=== PATIENT | female | born 1995 | race African-American/Black ===

== ENCOUNTER 2017-07-28 14:27 | Inpatient (IN) | payer BC, OTHER ==
[2017-07-28 15:15] VITALS: BMI 37.3
--- NOTE | 2017-07-28 18:43 | HP ---
CIWA Score - CIWA Score Nausea/Vomitin-Mild Nausea/No Vomiting Muscle Tremors: 3 Anxiety: 3 Agitation: 3 Paroxysmal Sweats: 3 Orientation: 0-Oriented Tacttile Disturbances: 0-None Auditory Disturbances: 0-None Visual Disturbances: 0-None Headache: 1-Very Mild CIWA-Ar Total Score: 14 Admission ROS BHS - HPI Chief Complaint: "I just want to get clean, I just want to do this" Allergies/Adverse Reactions: Allergies Allergy/AdvReac Type Severity Reaction Status Date / Time No Known Allergies Allergy Verified 07/28/17 17:40 History of Present Illness: 21 y/o female with an 8 year old hx of alcohol addiction presents here today requesting detox. This is pt's first time of seeking help with drinking. Denies medical nor psychiatric hx. Denies being mandated by law/the courts, states she came on her own Endorses to feeling sad but denies previous nor current SI/HI Exam Limitations: No Limitations - Ebola screening Have you traveled outside of the country in the last 21 days: No (N) Have you had contact with anyone from an Ebola affected area: No Have you been sick,other than usual withdrawal symptoms: No Do you have a fever: No - Review of Systems Constitutional: Other (unintentional weight gain) EENT: reports: Other (wears glasses) Respiratory: reports: No Symptoms reported Cardiac: reports: Palpitations (sometimes, not current) GI: reports: No Symptoms Reported : reports: No Symptoms Reported Musculoskeletal: reports: Other (generalized pain s/p alteraction yesterday) Integumentary: reports: Bruising (echymosis under R eye) Neuro: reports: No Symptoms reported Endocrine: reports: Excessive Sweating, Change in Weight (frequent weight loss and gain) Hematology: reports: Easy Bruising Psychiatric: reports: Orientated x3 Other Systems: Reviewed and Negative Patient History - Patient Medical History Hx Anemia: No Hx Asthma: No Hx Chronic Obstructive Pulmonary Disease (COPD): No Hx Cancer: No Hx Cardiac Disorders: No Hx Congestive Heart Failure: No Hx Hypertension: No Hx Hypercholesterolemia: No Hx Pacemaker: No HX Cerebrovascular Accident: No Hx Seizures: No Hx Dementia: No Hx Diabetes: No Hx Gastrointestinal Disorders: No Hx Liver Disease: No Hx Genitourinary Disorders: No Hx Sexually Transmitted Disorders: Yes (Chlamydia x 2014) Hx Renal Disease (ESRD): No Hx Thyroid Disease: No Hx Human Immunodeficiency Virus (HIV): No Hx Hepatitis C: No Hx Depression: No Hx Suicide Attempt: No Hx Bipolar Disorder: No Hx Schizophrenia: No - Patient Surgical History Past Surgical History: No Hx Neurologic Surgery: No Hx Cataract Extraction: No Hx Cardiac Surgery: No Hx Lung Surgery: No Hx Breast Surgery: No Hx Breast Biopsy: No Hx Abdominal Surgery: No Hx Appendectomy: No Hx Cholecystectomy: No Hx Genitourinary Surgery: No Hx Section: No Hx Orthopedic Surgery: No Hx Hysterectomy: No Anesthesia Reaction: No - PPD History Previous Implant?: Yes Documented Results: Negative w/o proof Implanted On Prior R Admission?: No PPD to be Administered?: Yes - Reproductive History Patient is a Female of Child Bearing Age (11 -55 yrs old): Yes Last Menstrual Period: 07/25/17 Patient : No - Smoking Cessation Smoking history: Current every day smoker Have you smoked in the past 12 months: Yes Aproximately how many cigarettes per day: 4 Initiated information on smoking cessation: Yes 'Breaking Loose' booklet given: 07/28/17 - Substances Abused Alcohol Route: Oral Frequency: Daily Amount used: 1 LITER of Liquor Age of first use: 14 Date of Last Use: 07/28/17 Family Disease History - Family Disease History Family History: Unremarkable Admission Physical Exam [facility] - Vital Signs Vital Signs: Vital Signs - 24 hr 07/28/17 15:12 Temperature 98.2 F Pulse Rate 110 H Respiratory 18 Rate Blood Pressure 133/68 - Physical General Appearance: Yes: Mild Distress, Anxious HEENTM: Yes: Within Normal Limits Respiratory: Yes: Lungs Clear, Normal Breath Sounds Neck: Yes: No masses,lesions,Nodules Breast: Yes: Breast Exam Deferred Cardiology: Yes: Tachycardia Abdominal: Yes: Non Tender Genitourinary: Yes: Within Normal Limits Back: Yes: Within Normal Limits Musculoskeletal: Yes: Within Normal Limits Extremities: Yes: Within Normal Limits Neurological: Yes: Within Normal Limits Integumentary: Yes: Within Normal Limits Lymphatic: Yes: Within Normal Limits - Diagnostic (1) Alcohol dependence with intoxication, uncomplicated Current Visit: Yes Status: Acute (2) Nicotine dependence Current Visit: Yes Status: Chronic (3) Depressed mood Current Visit: Yes Status: Chronic Cleared for Admission S - Detox or Rehab [facility] Level of Care: Medically Managed Detox Regimen/Protocol: Librium [facility] Breath Alcohol Content Breath Alcohol Content: 0.156 Urine Pregancy Test - Result Urine Test Results: Negative- NO Line Present Urine Drug Screen - Results Drug Screen Negative: Yes
[2017-07-28] MEDS ORDERED: LOPERAMIDE HCL 2 MG CAPSULE PO PRN (19:10)
[2017-07-28] MEDS ORDERED: MAGNESIUM CITRATE 300 ML BOTTLE PO PRN (19:10)
[2017-07-28] MEDS ORDERED: chlordiazePOXIDE HCL 25 MG CAPSULE PO PRN (19:10)
[2017-07-28] MEDS ORDERED: hydrOXYzine PAMOATE 50 MG CAPSULE (FP) PO PRN (19:10)
[2017-07-28] MEDS ORDERED: guaiFENesin/D-METHORPHAN HB 10 ML UNIT-DOSE CUPS PO PRN (19:10)
[2017-07-28] MEDS ORDERED: MAGNESIUM HYDROX 2400MG/30ML ORAL SUSPENSION 30 ML CUP PO PRN (19:10)
[2017-07-28] MEDS ORDERED: MENTHOL/PHENOL 1 EACH UD MM PRN (19:10)
[2017-07-28] MEDS ORDERED: P-EPHED 60MG/TRIPROLIDI 2.5MG TABLET PO PRN (19:10)
[2017-07-28] MEDS ORDERED: IBUPROFEN 400 MG TABLET (FP) PO PRN (19:10)
[2017-07-28] MEDS ORDERED: MAG HYDROX/AL HYDROX/SIMETH 30 ML UNIT-DOSE CUP PO PRN (19:10)
[2017-07-28] MEDS ORDERED: NICOTINE POLACRILEX 2 MG GUM BUC PRN (19:10)
[2017-07-28] MEDS ORDERED: ACETAMINOPHEN 325 MG TABLET (FP) PO PRN (19:17)
[2017-07-28] MEDS ORDERED: MELATONIN 5 MG TABLETS PO PRN (22:00)
[2017-07-28] MEDS ORDERED: THIAMINE HCL 100 MG TABLET (FP) PO SCH (22:00)
[2017-07-28] MEDS: chlordiazePOXIDE HCL 25 MG CAPSULE PO SCH (22:31)
[2017-07-29] MEDS: chlordiazePOXIDE HCL 25 MG CAPSULE PO SCH ×2 (05:44→10:44)
[2017-07-29 06:29] VITALS: TEMP 97.7
--- NOTE | 2017-07-29 08:23 | EKG ---
Test Reason : Blood Pressure : / mmHG Vent. Rate : 102 BPM Atrial Rate : 102 BPM P-R Int : 160 ms QRS Dur : 088 ms QT Int : 334 ms P-R-T Axes : 041 082 044 degrees QTc Int : 435 ms SINUS TACHYCARDIA OTHERWISE NORMAL ECG NO PREVIOUS ECGS AVAILABLE Confirmed by SCOTT FARIAS, ADAMS ([id number]) on 07/29/2017 8:23:43 AM Referred By: Confirmed By:ADAMS CHAVEZ MD
[2017-07-29] MEDS ORDERED: PRENATAL VITAMINS W/ FOLIC ACID TABLET (FP) PO SCH (10:00)
[2017-07-29 10:25] LABS: HEMATOCRIT 35.9 % (32.4-45.2); MCH 30.7 pg (25.7-33.7); MCHC 33.4 g/dl (32.0-36.0); MEAN CELL VOLUME 91.9 fl (80-96); MEAN PLT VOLUME 9.1 fl (7.5-11.1); PLATELET COUNT 238 K/MM3 (134-434); RDW 13.2 % (11.6-15.6); WHITE BLOOD COUNT 4.9 K/mm3 (4.0-10.0)
[2017-07-29 10:37] LABS: ANION GAP 7 (8-16); BLOOD UREA NITROGEN 9 mg/dL (7-18); CALCIUM 8.4 mg/dL (8.5-10.1); CHLORIDE 104 mmol/L (98-107); CO2 29 mmol/L (21-32); GLUCOSE,RANDOM 84 mg/dL (74-106); POTASSIUM 3.7 mmol/L (3.5-5.1); SGOT/AST 34 U/L (15-37); SGPT/ALT 51 U/L (12-78); SODIUM 140 mmol/L (136-145)
[2017-07-29 10:40] LABS: ALK PHOS 59 U/L (45-117); BILIRUBIN,TOTAL 0.5 mg/dL (0.2-1.0); CREATININE 0.8 mg/dL (0.55-1.02); TOT PROT 6.1 g/dl (6.4-8.2)
[2017-07-29 11:48] VITALS: BP 116/68; PULSE 18
--- NOTE | 2017-07-29 12:58 | DS ---
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 PATIENT IS LOOKING FORWARD TO RETURN TO WORK ON SUNDAY DENIES ALCOHOL WITHDRAWAL SX - Physical Exam Results Vital Signs: Vital Signs Temperature 97.7 F 07/29/17 09:54 Pulse Rate 18 L 07/29/17 11:47 Respiratory Rate 86 H 07/29/17 09:54 Blood Pressure 116/68 07/29/17 11:47 O2 Sat by Pulse Oximetry (%) Pertinent Admission Physical Exam Findings: ALCOHOL WITHDRAWAL SX Vital Signs Temperature 97.7 F 07/29/17 09:54 Pulse Rate 18 L 07/29/17 11:47 Respiratory Rate 86 H 07/29/17 09:54 Blood Pressure 116/68 07/29/17 11:47 O2 Sat by Pulse Oximetry (%) Laboratory Last Values WBC 4.9 K/mm3 (4.0-10.0) 07/29/17 07:00 RBC 3.90 M/mm3 (3.60-5.2) 07/29/17 07:00 Hgb 12.0 GM/dL (10.7-15.3) 07/29/17 07:00 Hct 35.9 % (32.4-45.2) 07/29/17 07:00 MCV 91.9 fl (80-96) 07/29/17 07:00 MCH 30.7 pg (25.7-33.7) 07/29/17 07:00 MCHC 33.4 g/dl (32.0-36.0) 07/29/17 07:00 RDW 13.2 % (11.6-15.6) 07/29/17 07:00 Plt Count 238 K/MM3 (134-434) 07/29/17 07:00 MPV 9.1 fl (7.5-11.1) 07/29/17 07:00 Sodium 140 mmol/L (136-145) 07/29/17 07:00 Potassium 3.7 mmol/L (3.5-5.1) 07/29/17 07:00 Chloride 104 mmol/L (98-107) 07/29/17 07:00 Carbon Dioxide 29 mmol/L (21-32) 07/29/17 07:00 Anion Gap 7 (8-16) L 07/29/17 07:00 BUN 9 mg/dL (7-18) 07/29/17 07:00 Creatinine 0.8 mg/dL (0.55-1.02) 07/29/17 07:00 Creat Clearance w eGFR > 60 (>60) 07/29/17 07:00 Random Glucose 84 mg/dL (74-106) 07/29/17 07:00 Calcium 8.4 mg/dL (8.5-10.1) L 07/29/17 07:00 Total Bilirubin 0.5 mg/dL (0.2-1.0) 07/29/17 07:00 AST 34 U/L (15-37) 07/29/17 07:00 ALT 51 U/L (12-78) 07/29/17 07:00 Alkaline Phosphatase 59 U/L (45-117) 07/29/17 07:00 Total Protein 6.1 g/dl (6.4-8.2) L 07/29/17 07:00 Albumin 3.0 g/dl (3.4-5.0) L 07/29/17 07:00 RPR Titer Nonreactive (NONREACTIVE) 07/29/17 07:00 LAB NOTED - Treatment Hospital Course: Detox Protocol Followed, Responded well Patient has Accepted a Rehab [facility]: [facility] - Medication Discharge Medications: Ambulatory Orders NK [No Known Home Medication] 07/28/17 - Diagnosis (1) Alcohol dependence with intoxication, uncomplicated Current Visit: Yes Status: Acute (2) Nicotine dependence Current Visit: Yes Status: Acute Qualifiers: Nicotine product type: cigarettes Substance use status: in withdrawal Qualified Code(s): F17.213 - Nicotine dependence, cigarettes, with withdrawal - AMA Did Patient Leave Against Medical Advice: Yes
[2017-07-29] MEDS ORDERED: chlordiazePOXIDE HCL 25 MG CAPSULE PO SCH (23:00)
[2017-07-30] MEDS ORDERED: chlordiazePOXIDE 5 MG CAPSULE PO SCH (23:00)
[2017-07-31] MEDS ORDERED: chlordiazePOXIDE HCL 10 MG CAPSULE PO SCH (23:00)
== END 2017-07-29 12:18 | disposition left against medical advice (07) | DRG 894 ==
LOC: YASAS 14:27 → Y6N 17:26
PROVIDERS: ADMIT Family Medicine Addiction Medicine; ATTEND Family Medicine Addiction Medicine
PROC: HZ2ZZZZ Detoxification Services for Substance Abuse Treatment (ICD-10-PCS; principal; 2017-07-28)
DX: F10.230 Alcohol dependence with withdrawal, uncomplicated (principal); F17.213 Nicotine dependence, cigarettes, with withdrawal; F32.9 Major depressive disorder, single episode, unspecified; Z87.42 Personal history of other diseases of the female genital tract; Z86.19 Personal history of other infectious and parasitic diseases
CPT/HCPCS: 36415; 80053; 85027; 86593; 93005; 93010